=== PATIENT | male | born 1965 | race African-American/Black ===

== ENCOUNTER 2023-07-30 10:36 | Emergency (ER) | payer MEDICAID ==
[~2023-07-30] VITALS: Ht 180.3 cm; Wt 120.2 kg
[2023-07-30 10:46] VITALS: BP_SYST 129; PULSE 95; RESP 18; TEMP 98; O2SAT 98
[2023-07-30 11:35] VITALS: BP_SYST 133; PULSE 96; RESP 16; TEMP 98; O2SAT 95
== END 2023-07-30 11:15 | disposition home or self-care (01) ==
LOC: SED 10:36
DX: S81.011A Laceration without foreign body, right knee, initial encounter (principal); M96.830 Postprocedural hemorrhage of a musculoskeletal structure following a musculoskeletal system procedure; Z79.899 Other long term (current) drug therapy; X58.XXXA Exposure to other specified factors, initial encounter; Y93.89 Activity, other specified; Y92.89 Other specified places as the place of occurrence of the external cause; Y99.8 Other external cause status
CPT/HCPCS: 99282